=== PATIENT | male | born 1985 | race African-American/Black ===

== ENCOUNTER 2018-01-28 14:48 | Observation (INO) | payer OTHER ==
[2018-01-28 17:03] LABS: AUTOMATED NEUTROPHIL # 2.7 TH/MM3 (1.8-7.7); BASOPHIL % 0.4 % (0.0-2.0); EOSINOPHIL % 0.6 % (0.0-4.0); HEMATOCRIT 45.3 % (39.0-51.0); HEMO FLAGS DIFF FINAL; HEMOGLOBIN 15.5 GM/DL (13.0-17.0); LYMPHOCYTE # 1.3 TH/MM3 (1.0-4.8); MEAN CELL VOLUME 95.6 FL (80.0-100.0); MEAN CORPUSCULAR HEMOGLOBIN 32.8 PG (27.0-34.0); MEAN CORPUSCULAR HGB CONC 34.3 % (32.0-36.0); MEAN PLATELET VOLUME 9.4 FL (7.0-11.0); MONO % 7.4 % (0.0-8.0); MONOCYTE # 0.3 TH/MM3 (0-0.9); NEUT % 61.6 % (16.0-70.0); PLATELET COUNT 209 TH/MM3 (150-450); RED BLOOD COUNT 4.74 MIL/MM3 (4.50-5.90); RED CELL DISTRIBUTION WIDTH 12.9 % (11.6-17.2); WHITE BLOOD COUNT 4.3 TH/MM3 (4.0-11.0)
[2018-01-28 17:21] LABS: APTT (PATIENT) 26.8 SEC (24.3-30.1); INTERNATIONAL NORMALIZED RATIO 1.1 RATIO
[2018-01-28 17:27] LABS: ALBUMIN 4.3 GM/DL (3.4-5.0); ALT (GPT) 18 U/L (12-78); ANION GAP 10 MEQ/L (5-15); AST (GOT) 17 U/L (15-37); BICARBONATE 26.3 MEQ/L (21.0-32.0); BLOOD UREA NITROGEN 17 MG/DL (7-18); CALCIUM 9.3 MG/DL (8.5-10.1); CHLORIDE 103 MEQ/L (98-107); CREATININE 1.27 MG/DL (0.60-1.30); GLOMERULAR FILTRATION RATE 80 ML/MIN (>89); GLUCOSE,RANDOM 82 MG/DL (74-106); MAGNESIUM 2.2 MG/DL (1.5-2.5); POTASSIUM 3.7 MEQ/L (3.5-5.1); SODIUM (NA) 139 MEQ/L (136-145)
[2018-01-28 17:31] LABS: ALKALINE PHOSPHATASE 104 U/L (45-117); CREATINE KINASE 276 U/L (39-308); TOTAL BILIRUBIN ADULT 0.7 MG/DL (0.2-1.0); TOTAL PROTEIN 8.2 GM/DL (6.4-8.2); TROPONIN I LESS THAN 0.02 NG/ML (0.02-0.05)
[2018-01-28 17:43] LABS: CKMB 1.2 NG/ML (0.5-3.6)
[2018-01-28] MEDS ORDERED: SODIUM CHLORIDE 0.9% FLUSH 10 ML FLUSH IV FLUSH (18:15)
[2018-01-28] MEDS: SODIUM CHLORIDE 0.9% FLUSH 10 ML FLUSH IVF (18:34)
[2018-01-28] MEDS: SODIUM CHLORIDE 0.9% FLUSH 10 ML FLUSH IV FLUSH (19:54)
[2018-01-28 21:08] LABS: CREATINE KINASE 240 U/L (39-308); TROPONIN I LESS THAN 0.02 NG/ML (0.02-0.05)
[2018-01-28 21:20] LABS: CKMB 1.1 NG/ML (0.5-3.6)
[2018-01-29 00:17] LABS: CREATINE KINASE 213 U/L (39-308); TROPONIN I LESS THAN 0.02 NG/ML (0.02-0.05)
[2018-01-29 00:29] LABS: CKMB 0.8 NG/ML (0.5-3.6)
[2018-01-29] MEDS: SODIUM CHLORIDE 0.9% FLUSH 10 ML FLUSH IV FLUSH (07:40)
== END 2018-01-29 10:10 | disposition home or self-care (01) ==
LOC: NEPE 14:48 → NEDA 17:51 → NEPHCDU 18:51
DX: R55 Syncope and collapse (principal); R42 Dizziness and giddiness; R94.31 Abnormal electrocardiogram [ECG] [EKG]
CPT/HCPCS: 71045; 80053; 82550; 82552; 83735; 84484; 85025; 85610; 85730; 93005; 99285-25